=== PATIENT | female | born 1995 | race Caucasian/White ===

== ENCOUNTER 2019-04-05 18:37 | Inpatient (IN) ==
[2019-04-05] MEDS ORDERED: AMBIEN PO PRN (21:36)
[2019-04-05] MEDS ORDERED: PEPCID IV PRN (21:36)
[2019-04-05] MEDS ORDERED: PEPCID PO PRN (21:36)
[2019-04-05] MEDS ORDERED: REGLAN PO ONE (21:36)
[2019-04-05] MEDS ORDERED: STADOL IV PRN ×3 (21:36)
[2019-04-05] MEDS ORDERED: PEPCID PO ONE (21:36)
[2019-04-05] MEDS ORDERED: TYLENOL PO PRN (21:36)
[2019-04-05] MEDS ORDERED: KEFZOL 1 GM/D5W 1 GM/50 ML IVPB IV PRN (21:36)
[2019-04-05] MEDS ORDERED: BRETHINE SUBQ PRN (21:36)
[2019-04-05] MEDS ORDERED: ZOFRAN IV PRN (21:36)
[2019-04-05] MEDS: LR 1,000 ML IV ONE (22:50)
[2019-04-05] MEDS: CYTOTEC PO SCH (23:08)
[2019-04-06 01:16] LABS: HEMATOCRIT 35.5 % (37.0-47.0); HEMOGLOBIN 11.7 g/dL (12.0-16.0); RBC 4.27 XMIL (4.2-5.4); WBC 11.72 X1000 (4.8-10.8)
[2019-04-06 01:17] LABS: BASO# 0.02 X1000 (0.0-0.2); BASO% 0.2 % (0.0-0.8); EOS# 0.04 X1000 (0.0-0.7); EOS% 0.3 % (0.0-10.0); IMM GRAN# 0.04 X1000 (0.0-0.04); IMM GRAN% 0.3 % (0.0-0.5); LYMPH# 2.89 X1000 (1.2-3.4); LYMPH% 24.7 % (20.5-51.1); MCH 27.4 PG (27-31); MCV 83.1 FL (81-99); MONO# 0.55 X1000 (0.11-0.59); MONO% 4.7 % (1.7-9.3); MPV 12.1 FL (7.4-10.4); NEUT# 8.18 X1000 (1.4-6.5); NEUT% 69.8 % (42.2-75.2); PLT 240 X1000 (130-400); RDW 14.5 % (11.5-14.5)
[2019-04-06] MEDS: CYTOTEC PO SCH ×2 (03:15→20:16)
[2019-04-06] MEDS ORDERED: PITOCIN 30 UNITS/NS 30 UNIT/500 ML IV.SOLN IV SCH (07:00)
[2019-04-06] MEDS ORDERED: LR 2,000 ML ONE (07:11)
--- NOTE | 2019-04-06 10:15 | HISTORY AND PHYSICAL ---
HISTORY OF PRESENT ILLNESS: The patient 23-year-old white female, G1, P0, at 39-2/7 weeks gestation for induction of labor due to large for gestational age. The patient has been followed by the Maternal- specialist due to the patient's own history of spina bifida, and they had noted that the was large and recommended delivery at 39 weeks. care unremarkable to date. Her group B strep culture was negative. PAST MEDICAL HISTORY: Significant for the spina bifida occulta. PAST SURGICAL HISTORY: Eye surgery at an early age. PAST OBSTETRICAL HISTORY: G1, P0. GYNECOLOGICAL HISTORY: Menarche at age 11. FAMILY HISTORY: Significant for diabetes mellitus, spina bifida, breast cancer, and high blood pressure. REVIEW OF SYSTEMS: All systems reviewed and noncontributory. SOCIAL HISTORY: Tobacco use: She quit in August 2018. Alcohol: None. MEDICATIONS: vitamins. ALLERGIES: No known drug allergies. PHYSICAL EXAMINATION: HEIGHT/WEIGHT: Height 5 feet 8 inches, weight 343 pounds. VITAL SIGNS: Temperature 98.2 degrees, blood pressure 143/80, pulse of 105, respirations 18. heart rate in the 140s with good aybb-ni-yatl variability. HEENT: Pupils equal, round, reactive to light and accommodation. Extraocular movements intact. Oropharynx clear. NECK: Supple. No thyromegaly. LUNGS: Clear to auscultation. HEART: Regular rate and rhythm. ABDOMEN: Gravid, obese. GENITOURINARY: On pelvic exam, cervix was noted to be 1 cm, 50% effaced, -2, and the cervix is softening from prior exam. EXTREMITIES: Mild lower extremity edema. DTRs 1+ bilaterally. ASSESSMENT AND PLAN: A 23-year-old white female, 1, para 0, at 39-2/7 weeks for labor induction due to large for gestational age. Patient was admitted on 04/05/2019 and had Cytotec initiated, and presently she is on Pitocin. We will continue Pitocin and see if she will have any progress from this. cc: Bandar Mckeon III, MD
[2019-04-06] MEDS: LR 1,000 ML IV ONE (16:24)
[2019-04-06] MEDS: LR 1,000 ML IV SCH (21:00)
[2019-04-07] MEDS: CYTOTEC PO SCH ×2 (00:15→04:25)
[2019-04-07] MEDS ORDERED: LR 1,000 ML ONE (00:23)
[2019-04-07] MEDS: LR 1,000 ML IV SCH ×2 (04:00→12:50)
--- NOTE | 2019-04-07 07:50 | OB/GYN PROGRESS NOTE ---
Progress Note OB - . OB Progress Note: Vital Signs - 24 hr 04/06/19 10:55 04/06/19 15:00 04/06/19 17:10 Temperature 97.6 F 97.9 F 97.4 F L Pulse Rate 76 89 100 H Respiratory Rate 20 20 20 Blood Pressure 108/66 97/56 134/88 O2 Sat by Pulse Oximetry 100 100 99 04/06/19 20:00 04/07/19 00:00 04/07/19 04:30 Temperature 97.9 F 97.6 F 97.9 F Pulse Rate 103 H 85 95 H Respiratory Rate 18 20 18 Blood Pressure 135/96 110/63 109/69 O2 Sat by Pulse Oximetry 98 94 L 98 No complaints, denies PIH sx. Active baby, no vb, lof. Denies CTX A&O NAD CTAB RRR S/ND/Gravid/morbid obesity 1+ bilateral JARERD CVX: /-3/vertex/bowi FHTs reassuring 23 y/o morbidly obese female at 39.2 with concern for LGA . Patient has history of spinabifida occulta (Will discuss with anesthesia about pain managment. - Continue with cytotec/pitocin induction - anticipate .
[2019-04-07] MEDS ORDERED: CYTOTEC PO ONE (08:30)
[2019-04-07] MEDS ORDERED: KEFZOL 1 GM/D5W 1 GM/50 ML IVPB IV ONE (13:11)
[2019-04-07] MEDS ORDERED: BICITRA PO ONE (13:15)
[2019-04-07] MEDS ORDERED: PEPCID PO ONE (13:15)
[2019-04-07] MEDS ORDERED: REGLAN IV ONE (13:15)
[2019-04-07] MEDS ORDERED: DIPRIVAN 1% ONE (13:58)
[2019-04-07] MEDS ORDERED: QUELICIN (DOSE) ONE (13:59)
[2019-04-07] MEDS ORDERED: XYLOCAINE-MPF 2% ONE (13:59)
[2019-04-07] MEDS ORDERED: PITOCIN ONE (14:09)
[2019-04-07] MEDS ORDERED: MORPHINE IV PRN (14:22)
[2019-04-07] MEDS ORDERED: DECADRON ONE (14:22)
[2019-04-07] MEDS ORDERED: ZOFRAN ONE (14:22)
[2019-04-07] MEDS ORDERED: FENTANYL ONE (14:23)
[2019-04-07] MEDS ORDERED: TORADOL ONE (14:25)
[2019-04-07] MEDS ORDERED: MORPHINE ONE ×2 (14:46→14:51)
[2019-04-07] MEDS ORDERED: M-M-R II VACCINE SUBQ ONE (14:49)
[2019-04-07] MEDS ORDERED: PITOCIN IM PRN (14:49)
[2019-04-07] MEDS ORDERED: MOTRIN PO PRN (14:49)
[2019-04-07] MEDS ORDERED: PITOCIN 20 UNITS/NS 20 UNITS/1,000 ML IV.SOLN IV ONE (14:49)
[2019-04-07] MEDS ORDERED: PHENERGAN IM PRN (14:49)
[2019-04-07] MEDS ORDERED: MYLICON PO PRN (14:49)
[2019-04-07] MEDS ORDERED: BOOSTRIX VACCINE IM ONE (14:49)
[2019-04-07] MEDS ORDERED: DULCOLAX PR PRN (14:49)
[2019-04-07] MEDS ORDERED: LR 1,000 ML IV SCH (15:15)
[2019-04-07] MEDS ORDERED: MORPHINE PCA IV PRN (15:15)
[2019-04-07] MEDS ORDERED: ZOFRAN IV PRN (15:15)
[2019-04-07] MEDS ORDERED: BENADRYL IV PRN (15:15)
[2019-04-07] MEDS ORDERED: MORPHINE IV ONE (15:15)
[2019-04-07] MEDS ORDERED: SODIUM CHLORIDE 0.9% INJ PRN (15:15)
[2019-04-07] MEDS ORDERED: NARCAN IV PRN (15:15)
[2019-04-07] MEDS ORDERED: PHENERGAN IV PRN (15:15)
[2019-04-07] MEDS: TORADOL IV SCH (20:49)
[2019-04-07] MEDS: MYLICON PO SCH (20:49)
[2019-04-07] MEDS: PERICOLACE PO SCH (20:52)
--- NOTE | 2019-04-07 21:03 | OPERATIVE NOTE ---
PROCEDURE DATE: 04/07/2019 PREOPERATIVE DIAGNOSES: 1. Morbid obesity. 2. Spina bifida occulta, maternal. 3. Failure to progress. 4. Macrosomia. POSTOPERATIVE DIAGNOSES: 1. Morbid obesity. 2. Spina bifida occulta, maternal. 3. Failure to progress. 4. Macrosomia. PROCEDURE: Primary low transverse section without extension. SURGEON: Antonino. METAL HANGING SUPERVISOR: Linda. ANESTHESIA: General endotracheal anesthesia. FINDINGS: 1. Normal tubes and ovaries bilaterally. 2. male, OT position. 3. 8 and 9 Apgars, nursery. 4. Hemostasis. 5. Correct sponge, needle, and instrument counts x3. COMPLICATIONS: None. ESTIMATED BLOOD LOSS: 800 mL. SPECIMENS: None. DRAINS: Claire to gravity with 100 mL clear urine. COMPLICATIONS: None. DISPOSITION: Transferred to recovery room in stable condition. STATEMENT OF MEDICAL NECESSITY: Mrs. Lima is a 23-year-old 1, para 0, at 39 weeks and 2 days, who presented for elective induction on Thursday night. She received Cytotec x2 followed by Pitocin on Thursday with no cervical change. Induction was stopped yesterday evening and she was allowed to eat, shower, and rest. She received 4 doses of Cytotec last night, again with no cervical change. The patient has a history of spina bifida occulta, and regional block would not be able to be accomplished per Anesthesia. Risks, benefits, alternatives, and indications were discussed with the patient, and patient desired to proceed with primary section under general anesthesia. DESCRIPTION OF OPERATION: After obtaining informed consent, the patient received Celestone 2 g for antibiotic prophylaxis. She was taken to the operating room where she was sterilely prepped and draped in the usual fashion. After prepping and draping, rapid sequence general anesthesia was performed. A stat was carried out. The skin was incised using the knife. Subcutaneous tissue was transected with the knife. The fascia was incised in the midline using the knife. The fascial incision was extended to the left and right using blunt force. The peritoneum was entered bluntly. The rectus muscles were in the midline and bladder blade was placed. A bladder flap was created using Metzenbaum scissors. Bladder blade was replaced on the bladder wall. [*]low transverse hysterotomy was made. Infant male at the [*] position was delivered without difficulty. He was bulb suctioned at the hysterotomy. The shoulders were delivered. The cord was clamped and he was passed off to the waiting nurse, 8 and 9 Apgars, nursery. Placenta was manually extracted. The uterus was externalized, wrapped with a moist laparotomy sponge. Dry curette was performed with a dry laparotomy sponge. The hysterotomy was closed with a #1 chromic in a running locking fashion. There was a small amount of bleeding noted at the right lateral edge which was yield hemostatic with a single figure-of- eight suture of #1 chromic. The uterus was placed back in the abdominopelvic cavity. Both gutters were copiously irrigated with warm saline. The bladder blade was replaced. Hysterotomy inspected and noted to be hemostatic. The peritoneum was closed with a 2-0 Vicryl in a running fashion. Rectus muscles were inspected and noted to be hemostatic. The fascia was closed with a 0 Vicryl in a running fashion. Subcutaneous tissue was copiously irrigated with warm saline. Hemostasis was achieved with Bovie cautery. The subcutaneous tissue was reapproximated using interrupted sutures of 3-0 plain gut. The skin was closed using joan. There were no anesthetic or operative complications. The patient was transferred to the recovery room in stable condition. cc: MD Bandar Fuentes III, MD
[2019-04-08] MEDS: PITOCIN 10 UNITS/NS 1,000 ML IV SCH ×2 (00:52→04:10)
[2019-04-08] MEDS: TORADOL IV SCH ×2 (04:00→08:42)
[2019-04-08 06:22] LABS: BASO# 0.02 X1000 (0.0-0.2); BASO% 0.2 % (0.0-0.8); EOS# 0.01 X1000 (0.0-0.7); EOS% 0.1 % (0.0-10.0); HEMATOCRIT 23.6 % (37.0-47.0); HEMOGLOBIN 7.6 g/dL (12.0-16.0); IMM GRAN# 0.03 X1000 (0.0-0.04); IMM GRAN% 0.2 % (0.0-0.5); LYMPH# 2.69 X1000 (1.2-3.4); LYMPH% 21.3 % (20.5-51.1); MCH 27.2 PG (27-31); MCHC 32.2 g/dL (33-37); MCV 84.6 FL (81-99); MONO% 4.8 % (1.7-9.3); MPV 11.4 FL (7.4-10.4); NEUT# 9.28 X1000 (1.4-6.5); NEUT% 73.4 % (42.2-75.2); PLT 185 X1000 (130-400); RBC 2.79 XMIL (4.2-5.4); RDW 14.5 % (11.5-14.5); WBC 12.63 X1000 (4.8-10.8)
--- NOTE | 2019-04-08 09:14 | OB/GYN PROGRESS NOTE ---
Progress Note OB - . Patient Problems: Current Active Problems Problem Status Onset delivery, delivered, current hospitalization Acute OB Progress Note: Vital Signs - 24 hr 04/07/19 11:29 04/07/19 14:45 04/07/19 14:55 Temperature 98.2 F 98.4 F Pulse Rate 79 89 75 Pulse Rate [Left] 89 Respiratory Rate 16 18 18 Blood Pressure 120/69 124/58 Blood Pressure [Left Arm] 130/58 124/58 O2 Sat by Pulse Oximetry 100 98 98 04/07/19 15:05 04/07/19 15:15 04/07/19 15:25 Temperature Pulse Rate 72 72 69 Pulse Rate [Left] Respiratory Rate 18 16 16 Blood Pressure Blood Pressure [Left Arm] 124/63 123/67 125/76 O2 Sat by Pulse Oximetry 98 98 98 04/07/19 15:35 04/07/19 15:45 04/07/19 20:00 Temperature 97.7 F Pulse Rate 88 69 93 H Pulse Rate [Left] Respiratory Rate 16 16 18 Blood Pressure 109/59 Blood Pressure [Left Arm] 141/89 129/71 O2 Sat by Pulse Oximetry 99 99 04/07/19 23:30 04/08/19 04:10 04/08/19 07:47 Temperature 98.0 F 97.1 F L 96.8 F L Pulse Rate 83 86 77 Pulse Rate [Left] Respiratory Rate 20 20 18 Blood Pressure 106/59 107/62 123/69 Blood Pressure [Left Arm] O2 Sat by Pulse Oximetry 97 98 98 Laboratory Results - last 24 hr 04/07/19 04/08/19 11:40 05:32 WBC 12.63 H RBC 2.79 L Hgb 7.6 L Hct 23.6 L MCV 84.6 MCH 27.2 MCHC 32.2 L RDW Std Deviation 14.5 Plt Count 185 MPV 11.4 H Immature Gran % (Auto) 0.2 Neut % (Auto) 73.4 Lymph % (Auto) 21.3 [place] % (Auto) 4.8 Eos % (Auto) 0.1 Baso % (Auto) 0.2 Immature Gran # (Auto) 0.03 Neut # (Auto) 9.28 H Lymph # (Auto) 2.69 [place] # (Auto) 0.60 H Eos # (Auto) 0.01 Baso # (Auto) 0.02 Blood Type O POSITIVE Antibody Screen NEGATIVE SUBJECTIVE: Patient without complaints. Denied fever, chills, N/V, SOB, or chest pain. Claire cath in-place. Pain controlled. Lochia "heavy", but not concerning. Tolerating PO. No flatus yet. . OBJECTIVE: CV: RRR Pulm: CTAB; no rhonchi, wheezing, or rales Abd: soft, minimal lower abdominal tenderness to palpation, non-distended fundus firm and below umbilicus Incision: dressing clear, dry, intact Ext: no LE TTP; SCDs on and functioning Claire bag: clear, yellow tinged urine A&P: 23yo s/p CD#1 at 39w2d for FTP, macrosomia, POD#1 1. POD#1- VS stable and wnl -D/C IVF and Claire cath -Encouraged ambulation 2. Hx depression- Continue Cymbalta 3. History of hypertension per [facility] report - records reviewed; no elevated BPs noted while in-patient 4. Class 3 obesity -SCDs for DVT ppx -Ambulation as tolerated
[2019-04-08] MEDS: CYMBALTA PO SCH (10:05)
[2019-04-08] MEDS: MYLICON PO SCH ×5 (10:06→20:03)
[2019-04-08] MEDS: NORCO-5 PO PRN ×2 (11:36→18:59)
[2019-04-08] MEDS ORDERED: LR 1,000 ML IV SCH (14:50)
[2019-04-08] MEDS: MOTRIN PO SCH ×2 (15:03→22:33)
[2019-04-08] MEDS: PERICOLACE PO SCH (20:01)
[2019-04-08] MEDS ORDERED: PERCOCET-5 PO PRN (22:57)
[2019-04-08] MEDS: PERCOCET-10 PO PRN (23:13)
[2019-04-09] MEDS: PERCOCET-10 PO PRN ×3 (03:47→23:21)
[2019-04-09] MEDS: MOTRIN PO SCH ×3 (07:46→23:22)
[2019-04-09] MEDS: CYMBALTA PO SCH (08:59)
[2019-04-09] MEDS: PRECARE PO SCH (08:59)
[2019-04-09] MEDS: MYLICON PO SCH ×4 (08:59→20:58)
--- NOTE | 2019-04-09 09:26 | OB/GYN PROGRESS NOTE ---
Progress Note OB - . Patient Problems: Current Active Problems Problem Status Onset delivery, delivered, current hospitalization Acute OB Progress Note: Vital Signs - 24 hr 04/08/19 11:38 04/08/19 15:32 04/08/19 20:01 Temperature 97.1 F L 97.3 F L 97.0 F L Pulse Rate 90 93 H 102 H Respiratory Rate 18 18 18 Blood Pressure 101/56 114/58 113/63 O2 Sat by Pulse Oximetry 96 96 04/09/19 01:01 04/09/19 03:55 04/09/19 07:45 Temperature 97.7 F 97.7 F 97.5 F L Pulse Rate 98 H 95 H 95 H Respiratory Rate 18 16 20 Blood Pressure 126/65 119/69 123/66 O2 Sat by Pulse Oximetry 98 98 98 S. Patient sitting in bed . She is ambulating and urinating well but has a lot of pain with walking. She is tolerating regular food and has light bleeding. O. Vitals WNL HEENT: Atraumatic, normocephalic Chest: CTAB Heart: RRR Abdomen soft Ext: scant edema, NTTP A/P 19yo s/p Day 2. Patient doing well. She is unsure about going home and would like to decide this afternoon. Encourage ambulation. Continue routine care.
[2019-04-09] MEDS: PERICOLACE PO SCH (20:58)
[2019-04-10] MEDS: PERCOCET-10 PO PRN (06:59)
[2019-04-10] MEDS: MOTRIN PO SCH (07:33)
[2019-04-10 08:25] VITALS: BP 122/67
[2019-04-10] MEDS: PRECARE PO SCH (09:40)
[2019-04-10] MEDS: MYLICON PO SCH ×2 (09:40→13:27)
[2019-04-10] MEDS: CYMBALTA PO SCH (09:41)
--- NOTE | 2019-04-10 19:57 | DISCHARGE SUMMARY ---
ADMISSION DATE: 04/05/2019 DISCHARGE DATE: 04/10/2019 ADMISSION DIAGNOSIS: Intrauterine 39 and 2/7 weeks for induction of labor. FINAL DIAGNOSIS: Intrauterine 39 and 2/7 weeks for induction of labor with operative delivery of a male 9 pounds 12 ounces with Apgars of 8 and 9 at 1406 on 04/07/2019 PROCEDURES: Primary low-transverse . BRIEF HISTORY: Patient is a 23-year-old white female G1, P0 at 39-2/7 weeks who is being induced for labor due to a large for gestational age . The patient has been followed by maternal specialist due to the patient's own personal history of spina bifida and they had noted that the infant was large and recommended delivery 39 weeks. care unremarkable except for obesity. Group B strep culture was negative. PAST MEDICAL HISTORY: Significant for obesity and spina bifida occulta. PAST SURGICAL HISTORY: Eye surgery at an early age. PAST OB HISTORY: G1, P0. MARKETING COORDINATOR HISTORY: Menarche at age 11. FAMILY HISTORY: Significant for diabetes mellitus, also is spina bifida in her sister, breast cancer and high blood pressure. REVIEW OF SYSTEMS: All systems reviewed and noncontributory. SOCIAL HISTORY: Tobacco use. She reports that she quit in August 2018. Alcohol use none. MEDICATIONS: vitamins. ALLERGIES: No known drug allergies. PHYSICAL EXAMINATION: Height 5 feet 8, weight 343 pounds. Vital Signs: Temperature 98.2 degrees, blood pressure 143/80, pulse of 105, respirations 18, heart rate in 140s with good hahb-vc-suyd variability. HEENT: Pupils equal, round, reactive to light and accommodation. Extraocular movements intact. Oropharynx clear. Neck: Supple. No thyromegaly. Lungs: Clear to auscultation. Heart: Regular rate and rhythm. Abdomen: Gravid, obese, nontender. Pelvic: Cervix was 1 cm dilated, 50% effaced, -2 station. Extremities: Mild lower extremity edema. DTRs 1+ bilaterally. ASSESSMENT PLAN: 23-year-old white female G1, P0 at 39-2/7 weeks for labor induction due to large for gestational age. Patient admitted on 04/05/2019 and had Cytotec orally for cervical ripening and then will progress from there. HOSPITAL COURSE: The patient on 04/06/2019 had Pitocin used all day long but had no cervical change so this was discontinued and then patient was given Cytotec on the night of 04/06/2019. The next day after speaking with anesthesia due to spina bifida occulta he would not do a regional anesthesia, therefore if she did not progress we would proceed with operative delivery under general anesthesia. Patient did not progress and so by mid day a was called due to failure of induction. Then patient had operative delivery of a male infant 9 pounds 12 ounces OP presentation at 1406 on 04/07/2019 with Apgars of 8 and 9. The postop course she was advanced on her diet and became ambulatory. Her postop hemoglobin was 7.6 and hematocrit was 23.6, however the patient's vital signs were stable and she did appear symptomatic. On postop day #3 patient was ambulating, eating, had stable vital signs, was afebrile and had positive flatus. [place] at this time that she can be discharged home. Presently she is breast feeding and recommend her to continue vitamins. DISCHARGE PLANS: The patient will be discharged home. Follow up on 04/14/2019 for staple removal. The patient given instructions on pelvic rest for 6 weeks and lifting precautions for 6 weeks. DISCHARGE MEDICATIONS: The patient is to continue with her vitamins and with her Cymbalta and the patient was given prescription for Percocet 10, Colace, iron sulfate and Motrin 800 mg. cc: Bandar Mckeon III, MD
== END 2019-04-10 13:10 | disposition home or self-care (01) | DRG 788 ==
LOC: P.NBC 18:37 → P.LD 19:05
PROVIDERS: ADMIT Obstetrics & Gynecology; ATTEND Obstetrics & Gynecology
CPT/HCPCS: 59025; 85025; 86592; 86850; 86900; 86901; 90715; 94799; A9270; J0330; J0690; J1100; J1885; J2270; J2275; J2405; J2550; J2590; J2765; J3010; J7120; Q9974